=== PATIENT | male | born 1950 | race Caucasian/White ===

== ENCOUNTER 2020-10-07 09:55 | Emergency (ER) | payer MEDICARE, OTHER ==
--- NOTE | 2020-10-07 10:18 | ED Physician Documentation ---
History of Present Illness - Stated complaint Stated Complaint: HIGH BP - Chief complaint Chief Complaint: Cardiac - History obtained from History obtained from: Patient - Additonal information Additional information: 70-year-old gentleman with history of type 2 diabetes, hyperlipidemia, and elevated blood pressures. About 2 months ago due to an insurance lapse he ran out of his medications which included Coreg 25 mg twice daily, hydrochlorothiazide 25 mg daily, atorvastatin 20 mg once a day, Metformin ER 500 mg, 2 tablets twice a day, benazepril 40 mg once a day. His blood pressures been quite high over the last few days and he went to [facility] care today and he was referred here for elevated blood pressures of 240 systolic or so. He has no symptoms. No chest pain, no trouble breathing, no pedal edema, no urinary complaints that are new noting that he has chronic frequency because of age- related issues. Review of Systems Constitutional: denies: Fever, Chills, Fatigue Cardiac: denies: Chest pain / pressure, Palpitations Respiratory: denies: Dyspnea, Cough GI: denies: Abdominal Pain, Nausea, Vomiting PD PAST MEDICAL HISTORY - Present Medications Home Medications: Ambulatory Orders Medication Instructions Recorded Confirmed Atorvastatin [Lipitor] 1 tab PO DAILY #30 tablet 10/07/20 Benazepril HCl [Lotensin] 40 mg PO DAILY #30 tablet 10/07/20 Carvedilol [Coreg] 25 mg PO BID #60 tablet 10/07/20 Metformin HCl [Metformin ER 2 tab PO BID #120 [id number] 10/07/20 Gastric] hydroCHLOROthiazide [Hydrodiuril] 25 mg PO DAILY #30 tablet 10/07/20 - Allergies Allergies/Adverse Reactions: Allergies Allergy/AdvReac Type Severity Reaction Status Date / Time codeine Allergy Hives Verified 10/07/20 10:05 PD ED PE NORMAL - Vitals Vital signs reviewed: Yes - General General: Alert and oriented X 3, No acute distress - HEENT HEENT: PERRL - Neck Neck: Supple, no meningeal sign - Cardiac Cardiac: RRR, No murmur - Respiratory Respiratory: Clear bilaterally - Abdomen Abdomen: Non tender - Extremities Extremities: No edema, No calf tenderness / cord - Neuro Neuro: Alert and oriented X 3, Normal speech Results - Vitals Vitals: Vital Signs - 24 hr 10/07/20 10/07/20 09:57 10:40 Temperature 37.2 C 37.4 C Heart Rate 73 79 Respiratory 18 18 Rate Blood Pressure 228/110 H 175/77 H O2 Saturation 99 98 Oxygen O2 Source Room air - EKG (time done) 1021 Rate: Rate (enter#) (67) Rhythm: NSR [place]: Normal Intervals: RBBB, Other (LAFB) Ischemia: Normal ST segments Computer interpretation: Agree with computer - Labs Labs: Laboratory Tests 10/07/20 10:19 Sodium 135 Potassium 4.5 Chloride 100 L Carbon Dioxide 26 Anion Gap 9.0 BUN 22 H Creatinine 1.3 H Estimated GFR (MDRD) 55 L Glucose 246 H Calcium 9.4 PD MEDICAL DECISION MAKING - ED course ED course: 70-year-old gentleman with asymptomatic elevated blood pressures. EKG is nonischemic, very mild creatinine elevation. No evidence of acute endorgan damage. His meds were refilled. Departure - Departure Disposition: Home, Self Care Clinical Impression: Hypertension Qualifiers: Hypertension type: essential hypertension Qualified Code(s): I10 - Essential (primary) hypertension Condition: Good Record reviewed to determine appropriate education?: Yes Instructions: ED HTN Established Prescriptions: Carvedilol [Coreg] 25 mg PO BID #60 tablet hydroCHLOROthiazide [Hydrodiuril] 25 mg PO DAILY #30 tablet Atorvastatin [Lipitor] 1 tab PO DAILY #30 tablet Benazepril HCl [Lotensin] 40 mg PO DAILY #30 tablet Metformin HCl [Metformin ER Gastric] 2 tab PO BID #120 [id number] Comments: Seen today for elevated blood pressures in the setting of being out of her medications. No acute worrisome findings, you have mild kidney disease. Follow-up with your primary care physician, next available appointment. Recomm end blood pressure recheck in approximately 48 hours. Start taking her meds again.
[2020-10-07 10:32] LABS: CALCIUM 9.4 mg/dL (8.5-10.3); CREATININE 1.3 mg/dL (0.6-1.2)
[2020-10-07 10:43] VITALS: BP 175/77
== END 2020-10-07 10:45 | disposition home or self-care (01) ==
LOC: ED 09:55
DX: I10 Essential (primary) hypertension (principal); I45.2 Bifascicular block; Z91.138 Patient's unintentional underdosing of medication regimen for other reason; T38.3X6A Underdosing of insulin and oral hypoglycemic [antidiabetic] drugs, initial encounter; T50.2X6A Underdosing of carbonic-anhydrase inhibitors, benzothiadiazides and other diuretics, initial encounter; T46.6X6A Underdosing of antihyperlipidemic and antiarteriosclerotic drugs, initial encounter; T46.4X6A Underdosing of angiotensin-converting-enzyme inhibitors, initial encounter; T44.7X6A Underdosing of beta-adrenoreceptor antagonists, initial encounter; E11.9 Type 2 diabetes mellitus without complications; Z79.84 Long term (current) use of oral hypoglycemic drugs
CPT/HCPCS: 36415; 80048; 93005; 99284

== ENCOUNTER 2021-07-09 07:51 | Outpatient (CLI) | payer MEDICARE | END 2021-07-09 07:52 | disposition home or self-care (01) | LOC: DI 07:51 | PROVIDERS: ATTEND Physician Assistant | DX: R06.00 Dyspnea, unspecified (principal); I87.8 Other specified disorders of veins; I11.9 Hypertensive heart disease without heart failure | CPT/HCPCS: 93306 ==

== ENCOUNTER 2022-04-08 07:40 | Outpatient (CLI) | payer MEDICARE | END 2022-04-08 07:41 | disposition home or self-care (01) | LOC: LAB.S 07:40 | PROVIDERS: ATTEND Physician Assistant | DX: Z12.5 Encounter for screening for malignant neoplasm of prostate (principal) | CPT/HCPCS: 36415; G0103; 84153 ==